=== PATIENT | female | born 1965 | race Asian ===

== ENCOUNTER 2017-04-26 08:41 | Outpatient (CLI) | payer OTHER | END 2017-04-26 10:00 | disposition home or self-care (01) | LOC: MAMMO 08:41 | DX: Z12.31 Encounter for screening mammogram for malignant neoplasm of breast (principal) | CPT/HCPCS: G0202-TC ==

== ENCOUNTER 2018-02-08 11:44 | Outpatient (CLI) | payer OTHER | END 2018-02-08 20:00 | disposition home or self-care (01) | LOC: RAD 11:44 | DX: J44.9 Chronic obstructive pulmonary disease, unspecified (principal) ==

== ENCOUNTER 2018-03-23 09:57 | Outpatient (CLI) | payer OTHER | END 2018-03-23 23:55 | disposition home or self-care (01) | LOC: RAD 09:57 | DX: M81.0 Age-related osteoporosis without current pathological fracture (principal) ==

== ENCOUNTER 2018-05-03 09:34 | Outpatient (CLI) | payer OTHER | END 2018-05-03 19:06 | disposition home or self-care (01) | LOC: CT 09:34 | DX: R06.02 Shortness of breath (principal) ==

== ENCOUNTER 2018-06-22 11:55 | Outpatient (CLI) | payer OTHER | END 2018-06-22 21:03 | disposition home or self-care (01) | LOC: MAMMO 11:55 | DX: Z12.31 Encounter for screening mammogram for malignant neoplasm of breast (principal) ==

== ENCOUNTER 2018-08-05 09:28 | Outpatient (CLI) | payer OTHER | END 2018-08-05 19:47 | disposition home or self-care (01) | LOC: CT 09:28 | DX: J44.9 Chronic obstructive pulmonary disease, unspecified (principal) ==

== ENCOUNTER 2019-02-03 14:45 | Outpatient (CLI) | payer OTHER | END 2019-02-03 23:21 | disposition home or self-care (01) | LOC: RAD 14:45 | DX: M25.562 Pain in left knee (principal) ==

== ENCOUNTER 2019-05-11 13:17 | Outpatient (CLI) | payer OTHER | END 2019-05-11 23:59 | disposition home or self-care (01) | LOC: RAD 13:17 | DX: J44.1 Chronic obstructive pulmonary disease with (acute) exacerbation (principal) ==

== ENCOUNTER 2019-06-26 10:38 | Outpatient (CLI) | payer OTHER | END 2019-06-26 19:47 | disposition home or self-care (01) | LOC: MAMMO 10:38 | DX: Z12.31 Encounter for screening mammogram for malignant neoplasm of breast (principal) ==

== ENCOUNTER 2020-02-16 10:33 | Outpatient (CLI) | payer OTHER | END 2020-02-16 23:06 | disposition home or self-care (01) | LOC: CT 10:33 | DX: R91.8 Other nonspecific abnormal finding of lung field (principal) ==